=== PATIENT | male | born 1965 | race Caucasian/White ===

== ENCOUNTER 2017-12-22 02:59 | Emergency (ER) | payer OTHER ==
[~2017-12-22] VITALS: Ht 170.2 cm; Wt 72.6 kg
[2017-12-22 03:03] VITALS: Ht 170.2 cm; Wt 72.6 kg
[2017-12-22 04:20] LABS: BASOPHIL % 0.4 % (0-2); PLATELET COUNT 290 x10^3mcL (130-400)
[2017-12-22 04:30] LABS: CALCIUM 8.4 mg/dL (8.5-10.1); CARBON DIOXIDE 25.5 mmol/L (21-32); CHLORIDE SERUM 108 mmol/L (98-107); CREATININE SERUM 1.2 mg/dL (0.7-1.3); GFR1 > 60 mL/min; GLUCOSE SERUM 81 mg/dL (74-106); POTASSIUM SERUM 4.3 mmol/L (3.5-5.1); SODIUM SERUM 141 mmol/L (136-145)
[2017-12-22 04:35] LABS: ALKALINE PHOSPHATASE 176 U/L (46-116); ALT/SGPT 29 U/L (16-63); AST/SGOT 17 U/L (15-37); BILIRUBIN TOTAL 0.21 mg/dL (0.20-1.00); TOTAL PROTEIN, SERUM 7.1 g/dL (6.4-8.2)
[2017-12-22 04:37] LABS: ALBUMIN 2.7 g/dL (3.4-5.0)
[2017-12-22 04:50] LABS: RED CELL DISTRIBUTION WIDTH 15.2 % (11.5-14.5)
[2017-12-22 05:29] VITALS: BP 144/78
== END 2017-12-22 05:42 | disposition home or self-care (01) ==
LOC: ED 02:59
PROVIDERS: Emergency Medicine
DX: R06.02 Shortness of breath (principal); I10 Essential (primary) hypertension; E11.9 Type 2 diabetes mellitus without complications; Z98.890 Other specified postprocedural states
CPT/HCPCS: 36415; 83880

== ENCOUNTER 2018-03-29 22:15 | Emergency (ER) | payer OTHER ==
[~2018-03-29] VITALS: Ht 165.1 cm; Wt 78.9 kg
[2018-03-29 22:28] VITALS: Ht 165.1 cm; Wt 78.9 kg
[2018-03-29 23:23] LABS: BASOPHIL % 0.4 % (0-2); PLATELET COUNT 275 x10^3mcL (130-400); RED CELL DISTRIBUTION WIDTH 14.8 % (11.5-14.5)
[2018-03-29 23:38] LABS: CALCIUM 8.4 mg/dL (8.5-10.1); CARBON DIOXIDE 25.2 mmol/L (21-32); CREATININE SERUM 2.1 mg/dL (0.7-1.3); POTASSIUM SERUM 4.3 mmol/L (3.5-5.1)
[2018-03-29 23:43] LABS: BILIRUBIN TOTAL 0.1 mg/dL (0.20-1.00); PHOSPHOROUS 4.2 mg/dL (2.5-4.9); URIC ACID 6.1 mg/dL (3.5-7.2)
[2018-03-29 23:44] LABS: ALBUMIN 2.6 g/dL (3.4-5.0)
[2018-03-30 01:05] VITALS: BP 142/82
== END 2018-03-30 01:05 | disposition home or self-care (01) ==
LOC: ED 22:15
PROVIDERS: Emergency Medicine
DX: I16.0 Hypertensive urgency (principal); G44.209 Tension-type headache, unspecified, not intractable; E11.9 Type 2 diabetes mellitus without complications; H54.7 Unspecified visual loss; Z98.890 Other specified postprocedural states; Z89.431 Acquired absence of right foot
CPT/HCPCS: 36415; J1885; Q0092

== ENCOUNTER 2018-12-30 07:30 | Emergency (ER) | payer OTHER ==
[~2018-12-30] VITALS: Ht 165.1 cm; Wt 75.3 kg
[2018-12-30 07:33] VITALS: Ht 165.1 cm; Wt 75.3 kg
[2018-12-30 07:43] VITALS: BP 206/84
== END 2018-12-30 08:37 | disposition home or self-care (01) ==
LOC: ED 07:30
DX: R04.0 Epistaxis (principal); I10 Essential (primary) hypertension; E11.9 Type 2 diabetes mellitus without complications; Z98.890 Other specified postprocedural states; H54.40 Blindness, one eye, unspecified eye

== ENCOUNTER 2019-04-10 14:17 | Inpatient (IN) | payer OTHER ==
[~2019-04-10] VITALS: Ht 167.6 cm; Wt 79.4 kg
[2019-04-10 14:27] VITALS: Ht 167.6 cm; Wt 79.4 kg
[2019-04-10 16:19] LABS: BASOPHIL % 0.4 % (0-2); PLATELET COUNT 242 x10^3mcL (130-400)
[2019-04-10 16:20] LABS: RED CELL DISTRIBUTION WIDTH 14.6 % (11.5-14.5)
[2019-04-10 16:36] LABS: BILIRUBIN TOTAL 0.2 mg/dL (0.20-1.00); CALCIUM 7.3 mg/dL (8.5-10.1); CARBON DIOXIDE 21.9 mmol/L (21-32); POTASSIUM SERUM 4.8 mmol/L (3.5-5.1); TOTAL PROTEIN, SERUM 6.7 g/dL (6.4-8.2)
[2019-04-10 16:38] LABS: ALBUMIN 2.4 g/dL (3.4-5.0)
[2019-04-10 16:40] LABS: CREATININE SERUM 4.9 mg/dL (0.7-1.3)
[2019-04-10] MEDS ORDERED: HYDRALAZINE HCL25 MG PO (18:37)
[2019-04-10] MEDS ORDERED: AZOR 10-20 MG1 EACH PO (18:38)
[2019-04-10] MEDS ORDERED: ASPIRIN CHILDRE81 MG PO (18:38)
[2019-04-10] MEDS ORDERED: CARVEDILOL ER40 MG PO (18:39)
[2019-04-10] MEDS ORDERED: ATORVASTATIN CA80 M1 PO (18:39)
[2019-04-10] MEDS ORDERED: GLIPIZIDE XL10 M1 PO (18:40)
[2019-04-10] MEDS ORDERED: CHLORTHALIDONE50 MG PO (18:41)
[2019-04-10] MEDS ORDERED: FORTAMET500 M1 PO ×2 (18:42)
[2019-04-10] MEDS ORDERED: CLONIDINE HYDR0.1 M1 PO (18:43)
[2019-04-10] MEDS ORDERED: BASAGLAR K100 UNIT/1 SQ (18:44)
[2019-04-10 20:01] VITALS: BP 154/82
[2019-04-10 21:22] VITALS: BP 147/63
[2019-04-11 06:10] VITALS: BP 118/57
[2019-04-11 06:42] LABS: BASOPHIL % 0.8 % (0-2); PLATELET COUNT 210 x10^3mcL (130-400); RED CELL DISTRIBUTION WIDTH 14.4 % (11.5-14.5)
[2019-04-11 07:20] LABS: CARBON DIOXIDE 21.2 mmol/L (21-32); CREATININE SERUM 5.2 mg/dL (0.7-1.3); POTASSIUM SERUM 4.4 mmol/L (3.5-5.1)
[2019-04-11 07:21] LABS: BILIRUBIN TOTAL 0.2 mg/dL (0.20-1.00); MAGNESIUM 2.3 mg/dL (1.8-2.4); TOTAL PROTEIN, SERUM 5.9 g/dL (6.4-8.2)
[2019-04-11 08:51] VITALS: BP 129/65
[2019-04-11 13:04] VITALS: BP 101/43
[2019-04-11 17:17] VITALS: BP 137/63
[2019-04-11 20:09] VITALS: BP 124/60
[2019-04-11 20:20] VITALS: BP 124/60
[2019-04-12 05:21] LABS: BASOPHIL % 0.5 % (0-2); PLATELET COUNT 212 x10^3mcL (130-400)
[2019-04-12 05:22] LABS: RED CELL DISTRIBUTION WIDTH 14.6 % (11.5-14.5)
[2019-04-12 05:52] LABS: UA SPECIFIC GRAVITY 1.015 (1.005-1.035); microscopic required? YES; urine erythrocyte TRACE (NEGATIVE)
[2019-04-12 05:59] VITALS: BP 120/55
[2019-04-12 06:51] LABS: CALCIUM 7.1 mg/dL (8.5-10.1); CARBON DIOXIDE 17.8 mmol/L (21-32); POTASSIUM SERUM 4.5 mmol/L (3.5-5.1)
[2019-04-12 07:15] LABS: CREATININE SERUM 5.2 mg/dL (0.7-1.3)
[2019-04-12 08:50] VITALS: BP 131/64
[2019-04-12 13:05] VITALS: BP 112/56
[2019-04-12 16:24] VITALS: BP 130/58
[2019-04-12 20:22] VITALS: BP 142/69
[2019-04-13 05:23] VITALS: BP 113/53
[2019-04-13 05:57] LABS: BASOPHIL % 0.4 % (0-2); PLATELET COUNT 201 x10^3mcL (130-400); RED CELL DISTRIBUTION WIDTH 14.4 % (11.5-14.5)
[2019-04-13 06:55] LABS: CALCIUM 6.8 mg/dL (8.5-10.1); POTASSIUM SERUM 4.9 mmol/L (3.5-5.1)
[2019-04-13 07:06] LABS: CREATININE SERUM 5.6 mg/dL (0.7-1.3)
[2019-04-13 08:41] VITALS: BP 131/62
[2019-04-13 12:08] VITALS: BP 111/50
[2019-04-13 15:53] VITALS: BP 133/56
[2019-04-13 21:48] VITALS: BP 126/59
[2019-04-14 06:28] VITALS: BP 133/49
[2019-04-14 06:38] LABS: CALCIUM 7.3 mg/dL (8.5-10.1); CARBON DIOXIDE 20.5 mmol/L (21-32); POTASSIUM SERUM 4.6 mmol/L (3.5-5.1)
[2019-04-14 06:43] LABS: CREATININE SERUM 5.7 mg/dL (0.7-1.3)
[2019-04-14 08:45] VITALS: BP 149/80
[2019-04-14 11:28] VITALS: BP 125/44
[2019-04-14 11:28] LABS: BASOPHIL % 0.5 % (0-2); PLATELET COUNT 217 x10^3mcL (130-400)
[2019-04-14 11:51] LABS: RED CELL DISTRIBUTION WIDTH 14.7 % (11.5-14.5)
[2019-04-14 13:00] VITALS: BP 138/63
[2019-04-14 18:01] VITALS: BP 130/88
[2019-04-14 21:23] VITALS: BP 132/60
[2019-04-15 03:55] VITALS: BP 148/81
[2019-04-15 05:41] VITALS: BP 153/57
[2019-04-15 07:05] LABS: CARBON DIOXIDE 19.1 mmol/L (21-32); POTASSIUM SERUM 4.5 mmol/L (3.5-5.1)
[2019-04-15 07:06] LABS: CREATININE SERUM 5.7 mg/dL (0.7-1.3)
[2019-04-15 08:36] VITALS: BP 145/57
[2019-04-15 12:47] VITALS: BP 124/67
[2019-04-15 13:45] VITALS: BP 124/67
== END 2019-04-15 14:55 | disposition home or self-care (01) | DRG 194 ==
LOC: ED 14:17 → DU 18:03
PROVIDERS: Emergency Medicine; Internal Medicine; Internal Medicine Nephrology; Internal Medicine Pulmonary Disease; ADMIT Internal Medicine Pulmonary Disease
DX: I13.0 Hypertensive heart and chronic kidney disease with heart failure and stage 1 through stage 4 chronic kidney disease, or unspecified chronic kidney disease (principal); J96.01 Acute respiratory failure with hypoxia; N17.0 Acute kidney failure with tubular necrosis; I50.41 Acute combined systolic (congestive) and diastolic (congestive) heart failure; Z95.1 Presence of aortocoronary bypass graft; H54.62 Unqualified visual loss, left eye, normal vision right eye; E11.22 Type 2 diabetes mellitus with diabetic chronic kidney disease; N18.9 Chronic kidney disease, unspecified; E11.319 Type 2 diabetes mellitus with unspecified diabetic retinopathy without macular edema; N20.0 Calculus of kidney; E11.21 Type 2 diabetes mellitus with diabetic nephropathy; E83.51 Hypocalcemia; E87.2 Acidosis; H54.40 Blindness, one eye, unspecified eye; E78.5 Hyperlipidemia, unspecified; I25.10 Atherosclerotic heart disease of native coronary artery without angina pectoris; Z89.411 Acquired absence of right great toe; Z89.421 Acquired absence of other right toe(s); Z89.431 Acquired absence of right foot
CPT/HCPCS: 82962; 83880; G0378; J1644; J1815; J1940; J3490; Q0092

== ENCOUNTER 2019-05-02 12:42 | Inpatient (IN) | payer OTHER ==
[~2019-05-02] VITALS: Ht 165.1 cm; Wt 83.5 kg
[~2019-05-02 12:42] MED LIST: ASPIRIN CHILDRE81 MG PO; ATORVASTATIN CA80 M1 PO; AZOR 10-20 MG1 EACH PO; BASAGLAR K100 UNIT/1 SQ; CARVEDILOL ER40 MG PO; CHLORTHALIDONE50 MG PO; CLONIDINE HYDR0.1 M1 PO; FORTAMET500 M1 PO; GLIPIZIDE XL10 M1 PO; HYDRALAZINE HCL25 MG PO
[2019-05-02 12:53] VITALS: Ht 165.1 cm; Wt 83.5 kg
[2019-05-02 14:34] LABS: BASOPHIL % 0.5 % (0-2); PLATELET COUNT 223 x10^3mcL (130-400)
[2019-05-02 14:45] LABS: BILIRUBIN TOTAL 0.3 mg/dL (0.20-1.00); CARBON DIOXIDE 16.6 mmol/L (21-32); TOTAL PROTEIN, SERUM 6.9 g/dL (6.4-8.2)
[2019-05-02 14:46] LABS: ALBUMIN 2.6 g/dL (3.4-5.0)
[2019-05-02 14:47] LABS: POTASSIUM SERUM 5.8 mmol/L (3.5-5.1)
[2019-05-02 14:48] LABS: CREATININE SERUM 5.7 mg/dL (0.7-1.3)
[2019-05-02 22:38] VITALS: BP 160/63
[2019-05-03 00:07] VITALS: BP 169/63
[2019-05-03 00:35] VITALS: BP 127/54
[2019-05-03 05:45] VITALS: BP 123/60
[2019-05-03 06:49] LABS: BASOPHIL % 0.8 % (0-2); PLATELET COUNT 198 x10^3mcL (130-400)
[2019-05-03 06:52] LABS: RED CELL DISTRIBUTION WIDTH 15.4 % (11.5-14.5)
[2019-05-03 07:05] LABS: BILIRUBIN TOTAL 0.3 mg/dL (0.20-1.00); CARBON DIOXIDE 16.4 mmol/L (21-32); MAGNESIUM 2.3 mg/dL (1.8-2.4); POTASSIUM SERUM 4.9 mmol/L (3.5-5.1); TOTAL PROTEIN, SERUM 6.5 g/dL (6.4-8.2)
[2019-05-03 07:19] LABS: ALBUMIN 2.5 g/dL (3.4-5.0)
[2019-05-03 07:20] LABS: CREATININE SERUM 5.9 mg/dL (0.7-1.3)
[2019-05-03 08:22] VITALS: BP 113/66
[2019-05-03 12:07] VITALS: BP 124/60
[2019-05-03 20:55] VITALS: BP 143/62
[2019-05-04 00:10] VITALS: BP 109/57
[2019-05-04 05:39] VITALS: BP 119/56
[2019-05-04 06:24] LABS: BASOPHIL % 0.4 % (0-2); PLATELET COUNT 208 x10^3mcL (130-400)
[2019-05-04 06:57] LABS: BILIRUBIN TOTAL 0.3 mg/dL (0.20-1.00); CARBON DIOXIDE 14.5 mmol/L (21-32); MAGNESIUM 2.5 mg/dL (1.8-2.4); POTASSIUM SERUM 5.3 mmol/L (3.5-5.1); TOTAL PROTEIN, SERUM 6.5 g/dL (6.4-8.2)
[2019-05-04 07:04] LABS: ALBUMIN 2.5 g/dL (3.4-5.0)
[2019-05-04 07:05] LABS: CREATININE SERUM 6.4 mg/dL (0.7-1.3)
[2019-05-04 07:09] LABS: RED CELL DISTRIBUTION WIDTH 15.2 % (11.5-14.5)
[2019-05-04 08:46] VITALS: BP 122/54
[2019-05-04 12:45] VITALS: BP 116/49
[2019-05-04 16:38] VITALS: BP 118/60
[2019-05-04 20:40] VITALS: BP 125/89
[2019-05-05 06:05] VITALS: BP 130/46
[2019-05-05 07:24] LABS: CARBON DIOXIDE 19.3 mmol/L (21-32); POTASSIUM SERUM 3.9 mmol/L (3.5-5.1)
[2019-05-05 07:25] LABS: CREATININE SERUM 5.4 mg/dL (0.7-1.3)
[2019-05-05 08:29] VITALS: BP 122/53
[2019-05-05 12:20] VITALS: BP 130/51
[2019-05-05 12:30] VITALS: BP 140/52
[2019-05-05 20:36] VITALS: BP 149/69
[2019-05-06 05:25] VITALS: BP 136/59
[2019-05-06 06:18] LABS: BASOPHIL % 0.2 % (0-2); PLATELET COUNT 209 x10^3mcL (130-400)
[2019-05-06 07:04] LABS: ALBUMIN 2.1 g/dL (3.4-5.0); BILIRUBIN TOTAL 0.3 mg/dL (0.20-1.00); CALCIUM 7.1 mg/dL (8.5-10.1); CARBON DIOXIDE 25.2 mmol/L (21-32); CREATININE SERUM 3.8 mg/dL (0.7-1.3); MAGNESIUM 1.8 mg/dL (1.8-2.4); PHOSPHOROUS 4.8 mg/dL (2.5-4.9); POTASSIUM SERUM 3.5 mmol/L (3.5-5.1); TOTAL PROTEIN, SERUM 5.8 g/dL (6.4-8.2)
[2019-05-06 08:12] LABS: RED CELL DISTRIBUTION WIDTH 15.1 % (11.5-14.5)
[2019-05-06 08:38] VITALS: BP 122/47
[2019-05-06 16:05] VITALS: BP 127/53
[2019-05-06 19:50] VITALS: BP 152/71
[2019-05-06 20:00] VITALS: BP 143/61
[2019-05-07 05:20] VITALS: BP 121/65
[2019-05-07 09:02] VITALS: BP 129/59
[2019-05-07 11:09] VITALS: BP 128/65
[2019-05-07 12:44] VITALS: BP 127/62
[2019-05-07 17:24] VITALS: BP 119/53
[2019-05-07 19:55] VITALS: BP 119/53
== END 2019-05-07 20:16 | disposition home or self-care (01) | DRG 194 ==
LOC: ED 12:42 → DU 16:11 → EDBEDREQ 16:11 → DU 21:51
PROVIDERS: Emergency Medicine; Internal Medicine; ADMIT Internal Medicine Pulmonary Disease
PROC: 02HV33Z Insertion of Infusion Device into Superior Vena Cava, Percutaneous Approach (ICD-10-PCS; 2019-05-04)
PROC: B548ZZA Ultrasonography of Superior Vena Cava, Guidance (ICD-10-PCS; 2019-05-04)
PROC: 5A1D70Z Performance of Urinary Filtration, Intermittent, Less than 6 Hours Per Day (ICD-10-PCS; 2019-05-04)
PROC: 5A1D70Z Performance of Urinary Filtration, Intermittent, Less than 6 Hours Per Day (ICD-10-PCS; 2019-05-05)
PROC: 30233N1 Transfusion of Nonautologous Red Blood Cells into Peripheral Vein, Percutaneous Approach (ICD-10-PCS; principal; 2019-05-06)
PROC: 5A1D70Z Performance of Urinary Filtration, Intermittent, Less than 6 Hours Per Day (ICD-10-PCS; 2019-05-06)
PROC: 0JH63XZ Insertion of Tunneled Vascular Access Device into Chest Subcutaneous Tissue and Fascia, Percutaneous Approach (ICD-10-PCS; 2019-05-07)
PROC: 02HV33Z Insertion of Infusion Device into Superior Vena Cava, Percutaneous Approach (ICD-10-PCS; 2019-05-07)
PROC: B5181ZA Fluoroscopy of Superior Vena Cava using Low Osmolar Contrast, Guidance (ICD-10-PCS; 2019-05-07)
PROC: 05PYX3Z Removal of Infusion Device from Upper Vein, External Approach (ICD-10-PCS; 2019-05-07)
DX: I13.2 Hypertensive heart and chronic kidney disease with heart failure and with stage 5 chronic kidney disease, or end stage renal disease (principal); N17.0 Acute kidney failure with tubular necrosis; J96.01 Acute respiratory failure with hypoxia; E11.22 Type 2 diabetes mellitus with diabetic chronic kidney disease; E87.2 Acidosis; E83.51 Hypocalcemia; E87.5 Hyperkalemia; E78.5 Hyperlipidemia, unspecified; H54.62 Unqualified visual loss, left eye, normal vision right eye; D64.9 Anemia, unspecified; E66.9 Obesity, unspecified; G93.49 Other encephalopathy; F10.10 Alcohol abuse, uncomplicated; I50.9 Heart failure, unspecified; N18.6 End stage renal disease; Z99.2 Dependence on renal dialysis; Z79.82 Long term (current) use of aspirin; Z68.30 Body mass index [BMI] 30.0-30.9, adult; Z95.1 Presence of aortocoronary bypass graft; Z79.84 Long term (current) use of oral hypoglycemic drugs; Z89.421 Acquired absence of other right toe(s); Z79.899 Other long term (current) drug therapy; Z23 Encounter for immunization; Z79.4 Long term (current) use of insulin
CPT/HCPCS: 36600; 82962; 83880; 86580; 87804; 90658; 90732; A4301; G0378; J0690; J1642; J1644; J1815; J1940; J2001; J2250; J3010; J3490; J7030; J7120; J7620; P9016; Q0092